=== PATIENT | female | born 1940 | race Caucasian/White ===

== ENCOUNTER 2019-09-23 12:02 | Emergency (ER) | payer MEDICARE ==
[2019-09-23 14:41] LABS: Appearance,Urine Clear (Clear); Bacteria,Urine Rare /hpf; Bilirubin,Urine Negative (Negative); Blood,Urine Negative (Negative); Color,Urine Light Yellow; Glucose,Urine (UA) Negative (Negative); Ketones,Urine Trace (Negative); Leukocyte Esterase,Urine Small (Negative); Mucus,Urine Rare /hpf; Nitrite,Urine Negative (Negative); PH, Urine 5.5 (5.0-8.0); Protein,Urine Negative (Negative); RBC,Urine 1 /hpf (0-5); Specific Gravity,Urine 1.008 (1.001-1.035); Squamous Epithelial Cell,Urine 1 /hpf (0-4); Urobilinogen,Urine <2.0 mg/dL (<2.0); WBC,Urine 1 /hpf (0-5)
[2019-09-23] MEDS ORDERED: traMADol 50 MG STARTER PACK 3 TAB BTL PO STA (15:11)
--- NOTE | 2019-09-23 15:14 | ED ---
Recheck HPI - General Chief Complaint: Recheck/Abnormal Lab/Rx Stated Complaint: pain all over Time Seen by Provider: 09/23/19 13:49 Source: patient, RN notes reviewed, old records reviewed Mode of arrival: ambulatory Limitations: no limitations - History of Present Illness Initial Comments: Patient's an 79-year-old female presents emergency department today complaining of diffuse joint pain. She also states that she is concerned she has a bladder prolapse. She states she supposed to follow-up with a research and development director in 2 weeks. She states that he was becoming more uncomfortable in her lower pelvic region, and with urinating she was concerned. She states that she just felt generally uncomfortable and felt that she come to the ER. She reports she is supposed to see a new professor of graphic design physician Dr. Goncalves next week as well. - Related Data Previous Rx's Medication Instructions Recorded methylPREDNISolone [Medrol Dose 4 mg PO DIRECTED #1 pack 09/23/19 Pack] traMADol HCl [Ultram] 50 mg PO Q6HR PRN 3 Days #12 tab 09/23/19 Allergies Allergy/AdvReac Type Severity Reaction Status Date / Time No Known Allergies Allergy Verified 09/23/19 12:12 Review of Systems ROS Statement: Those systems with pertinent positive or pertinent negative responses have been documented in the HPI. ROS Other: All systems not noted in ROS Statement are negative. Past Medical History Past Medical History: Asthma, Hypertension Past Surgical History: Cholecystectomy Additional Past Surgical History / Comment(s): rt eye removed, pericardial sac drained Past Psychological History: No Psychological Hx Reported Smoking Status: Never smoker Past Alcohol Use History: None Reported Past Drug Use History: None Reported General Exam - General Exam Comments Initial Comments: Alert oriented well-appearing 79-year-old female. No acute distress. General: Well appearing, well nourished, in no distress. Oriented x 3, normal mood and affect . Ambulating without difficulty. Skin: Good turgor, no rash, unusual bruising or prominent lesions Hair: Normal texture and distribution. HEENT: Head: Normocephalic, atraumatic, no visible or palpable masses, depressions, or scaring. Neck: Supple, without lesions, bruits, or adenopathy, thyroid non-enlarged and non-tender Heart: No cardiomegaly or thrills; regular rate and rhythm, no murmur or gallop Lungs: Clear to auscultation and percussion Abdomen: Bowel sounds normal, no tenderness, organomegaly, masses, or hernia Back: Spine normal without deformity or tenderness, no CVA tenderness Extremities: No amputations or deformities, cyanosis, edema or varicosities, peripheral pulses intact Musculoskeletal: Normal gait and station. No misalignment, asymmetry, crepitation, defects, tenderness, masses, effusions, decreased range of motion, instability, atrophy or abnormal strength or tone in the head, neck, spine, ribs, pelvis or extremities. Neurologic: CN 2-12 normal. Sensation to pain, touch, and proprioception normal. DTRs normal in upper and lower extremities. No pathologic reflexes. Pelvic: Vagina and cervix without lesions. evidence of cystocele from anterior uterine wall. Limitations: no limitations Course Vital Signs 09/23/19 09/23/19 12:06 15:31 Temperature 97.2 F L 98.0 F Pulse Rate 82 84 Respiratory 18 16 Rate Blood Pressure 132/62 128/89 O2 Sat by Pulse 98 99 Oximetry Medical Decision Making - Medical Decision Making 79-year-old female presents with generalized joint pain, also some concern for cystocele. [place] physical exam she does have evidence of cystocele that is reducible, and urinalysis completely no sign of infection. She reports she does follow with a professor of graphic design. I discussed her general information and concerns with chronic arthritis. The Patient a short course of steroids and continue anti-inflammatory medicine. She was prescribed meloxicam. I discussed that she has worsening he essentially at night and having trouble sleeping extremities which are coarse pain as well as given a starter pack and ED. All questions were answered and return parameters were discussed. - Lab Data Lab Results 09/23/19 Range/Units 14:30 Urine Color Light Yellow Urine Appearance Clear (Clear) Urine pH 5.5 (5.0-8.0) Ur Specific [place] 1.008 (1.001-1.035) Urine Protein Negative (Negative) Urine Glucose (UA) Negative (Negative) Urine Ketones Trace H (Negative) Urine Blood Negative (Negative) Urine Nitrite Negative (Negative) Urine Bilirubin Negative (Negative) Urine Urobilinogen <2.0 (<2.0) mg/dL Ur Leukocyte Esterase Small H (Negative) Urine RBC 1 (0-5) /hpf Urine WBC 1 (0-5) /hpf Ur Squamous Epith Cells 1 (0-4) /hpf Urine Bacteria Rare H (None) /hpf Urine Mucus Rare H (None) /hpf Disposition Clinical Impression: Prolapse of bladder, Chronic arthritis Disposition: HOME SELF-CARE Condition: Good Instructions (If sedation given, give patient instructions): Cystocele (ED), Arthritis (ED) Additional Instructions: Please use medication as discussed. Follow-up with gynecology. Patient can use the steroids but while using steroids please hold off on using further anti-inflammatory medication such as the Mobic and Motrin as this can be harsh on the stomach lining. Please follow up with family doctor if symptoms have not improved over the next two days. Please return to the emergency room if your symptoms increase or worsen or for any other concerns. Prescriptions: methylPREDNISolone [Medrol Dose Pack] 4 mg PO DIRECTED #1 pack traMADol HCl [Ultram] 50 mg PO Q6HR PRN 3 Days #12 tab PRN Reason: Pain Is patient prescribed a controlled substance at d/c from ED?: Yes If prescribed controlled substance>3 days was MAPS reviewed?: Prescribed <3 Days If opioid is for acute pain is fill amount 7 days or less?: Yes If Rx opioid, was Start Talking consent form obtained?: Yes Referrals: Efrem Christie MD [Primary Care Provider] - 1-2 days Time of Disposition: 15:13
[2019-09-23 15:33] VITALS: BP 128/89; PULSE 84; RESP 16; TEMP 98
== END 2019-09-23 15:32 | disposition home or self-care (01) ==
LOC: EC 12:02
DX: M19.90 Unspecified osteoarthritis, unspecified site (principal); N81.10 Cystocele, unspecified; J45.909 Unspecified asthma, uncomplicated; I10 Essential (primary) hypertension
CPT/HCPCS: 81001; 99284

== ENCOUNTER → 2020-02-02 | Outpatient (CLI) | payer MEDICARE ==
--- NOTE | 2020-02-03 07:40 | BD ---
EXAMINATION TYPE: Axial Bone Density DATE OF EXAM: 02/02/2020 COMPARISON: NONE CLINICAL HISTORY: 79 YR OLD FEMALE.....ICD-10 CODE: Z79.52 CHRONIC STEROID USE Height: 64.3 Weight: 148 FRAX RISK QUESTIONS: Glucocorticoids (More than 3mos): YES (Ex: prednisone, prednisolone, methylprednisolone, dexamethasone, and hydrocortisone). History of Fracture in Adulthood: YES Secondary Osteoporosis: YES 3. Menopause before 45: YES Rheumatoid Arthritis: YES RISK FACTORS HISTORY OF: HX OF RT SHOULDER FX > 50 YRS OLD Postmenopausal woman: YES, IN HER 40-41 YRS OLD Lost more than 2 inches in height since high school: YES Hyperparathyroidism: NO Adrenal Insufficiency: NO MEDICATIONS: Prednisone or other steroids: YES, DAILY FOR RA, PMR, FOR ABOUT 3 YRS Additional Medications: BP MEDS, STEROIDS Additional History: PMR AND RA EXAM MEASUREMENTS: Bone mineral densitometry was performed using the Vapotherm System. Bone mineral density as measured about the Lumbar spine is: ----- L1-L4(G/cm2): 1.175 T Score Values are as follows: ----- L1: -0.8 ----- L2: -0.1 ----- L3: 0.6 ----- L4: 0.1 ----- L1-L4: 0.0 Bone mineral density FIRST DEXA STUDY AT [facility] Bone mineral density about the R hip (g/cm2): 0.735 Bone mineral density about the L hip (g/cm2): 0.764 T Score values are as follows: -----R Neck: -2.2 -----L Neck: -1.8 -----R Total: -2.2 -----L Total: -1.9 Bone mineral density FIRST DEXA AT [facility] FRAX%s: THERE IS A 43.1% CHANCE FOR A MAJOR OSTEOPOROTIC FX AND A 17.1% FOR HIP.....PROBABILITY FOR FX IN 10 YRS TIME IMPRESSION: Osteopenia (T Score between -2.5 and -1). There is slightly increased risk of fracture and the patient may be considered for treatment. Re-Screen 2-5 years. NOTE: T-SCORE=SD OF THE YOUNG ADULT MEAN.
== END | disposition home or self-care (01) ==
LOC: RADBDWWP 14:37
PROVIDERS: ATTEND Internal Medicine Rheumatology
DX: M85.88 Other specified disorders of bone density and structure, other site (principal); Z79.52 Long term (current) use of systemic steroids
CPT/HCPCS: 77080

== ENCOUNTER → 2022-04-01 | Outpatient (CLI) | payer MEDICARE | END | disposition home or self-care (01) | LOC: LABWHC1 14:47 | PROVIDERS: ATTEND Internal Medicine Interventional Cardiology | DX: E03.9 Hypothyroidism, unspecified (principal) | CPT/HCPCS: 36415; 84443 ==